=== PATIENT | female | born 1955 | race Caucasian/White ===

== ENCOUNTER 2017-01-21 08:09 | Inpatient (IN) ==
[2017-01-21] MEDS: LR 1,000 ML IV SCH ×5 (08:25→22:23)
[2017-01-21 08:31] VITALS: BMI 31.1
--- NOTE | 2017-01-21 09:39 | Anesthesia Preoperative Report ---
Anesthesia Preoperative Record - Date and Time Date: 01/21/17 Preoperative Diagnosis: Open right hemicolectomy cecal cancer Proposed Procedure: open right hemicolectomy NPO Since Date: 01/20/17 NPO Since Time: 23:00 Allergies/Adverse Reactions: Allergies Allergy/AdvReac Type Severity Reaction Status Date / Time erythromycin base AdvReac Unknown VOMITING Verified 01/21/17 08:23 - Vital Signs Vital Signs: Temperature 98.5 F 01/21/17 08:31 Pulse Rate 73 01/21/17 08:31 Respiratory Rate 15 01/21/17 08:31 Blood Pressure 154/72 H 01/21/17 08:31 Pulse Oximetry 98 01/21/17 08:31 Height and Weight: Height 1.73 m Weight 93.1 kg Body Mass Index 31.1 - Medications Inpatient Medications: Current Medications Alvimopan (Entereg) 12 mg PO O ONE Stop: 01/21/17 14:38 Last Admin: 01/21/17 08:50 Dose: 12 mg Ertapenem 1 g/ Sodium Chloride 100 mls @ 200 mls/hr IV PREOP ONE Stop: 01/21/17 15:11 Lactated Ringer's (Lactated Ringers) 1,000 mls @ 150 mls/hr IV .Q6H40M CHAVA Last Admin: 01/21/17 08:25 Dose: 150 mls/hr Lidocaine HCl (Xylocaine-Mpf 1% Vial) 1 mg ID O ONE Stop: 01/21/17 14:38 Last Admin: 01/21/17 08:55 Dose: Not Given Home Medications: Home Medications Medication Instructions Recorded Confirmed Type Acetaminophen [Tylenol Arthritis] 650 mg PO Q6H PRN #0 10/06/15 01/21/17 History Fluticasone Nasal [place] [Flonase] 1 spray EA NOSTRIL DAILY PRN #0 10/06/1501/21 History albuterol sulfate HFA 90 2 puff INH Q6H PRN g 08/20/16 01/21/17 History mcg/actuation aerosol inhaler lutein 20 mg capsule 20 mg PO DAILY cap 01/01/17 01/21/17 History vitamin B complex capsule 1 cap PO QAM 01/01/17 01/21/17 History Cholecalciferol (Vitamin D3) 1 tab PO DAILY 01/02/17 01/21/17 History [Vitamin D3] Duloxetine HCl [Cymbalta] 2 tab PO HS 01/02/17 01/21/17 History Trazodone [Desyrel] 150 mg PO HS 01/02/17 01/21/17 History - Medical History Cardiovascular: Reports: Other (ablaltion 10 yrs ago, ) Neuro/Musculoskeletal: Reports: Other (TIA, 4 yrs ago during tumor removal, vision loss left eye, ) - Surgical History HEENT Surgeries: Reports: Ear Surgery (mole removal), Tonsillectomy Cardiac Surgeries/Treatments: Reports: Other (CARDIAC ABLATION) GI Surgery/Treatments: Reports: Appendectomy, Hernia Repair (HIATAL-2000), Colonoscopy (2010,2016), EGD (2000,2016) Musculoskeletal Surgery/Tx: Reports: Other (LEFT ANKLE and foot X2-fracture/no surgery) Reproductive Surgery/Treatment: Reports: Hysterectomy Anesthesia Reactions: None Hx Family Anesthesia Reaction: No - Social History Smoking Status: Never smoker - Pertinent Findings Laboratory: CBC and BMP 01/21/17 08:35 EKG: Sinus Rhythm - Physical Exam Respiratory Exam: Present: lungs clear, bilateral breath sounds equal Cardiovascular Exam: Present: regular rate and rhythm, no murmur - Airway Assessment Mallampati Score: III TMD: 2 Fingerbreadths Neck Extension: fair - ASA ASA Score: 3 - Plan Anesthesia: General Inhalation Gases - Discussion Discussion: Discussed risks/options/alternatives of anesthesia and questions answered. Patient consents. Nursing pain assessment noted. Attestation Statement: Prior to the delivery of any anesthetic medication, I examined the patient, developed the plan, obtained the patient's consent and discussed the risk and benefits of the procedure with the patient/guardian. - Additional Information Comments: anemic, surgeon and pt aware. type and screen done, possible art line, iv, and ICU if needed
[2017-01-21] MEDS ORDERED: SCOPOLAMINE 1.5 MG PATCH TD ONE (09:46)
[2017-01-21] MEDS ORDERED: FentaNYL 100 MCG/2 ML INJECTION ONE ×4 (09:59→13:50)
[2017-01-21] MEDS ORDERED: PROPOFOL 20 ML ONE ×2 (09:59→12:12)
[2017-01-21] MEDS ORDERED: ROCURONIUM 50 MG/5 ML INJECTION IVP ONE (09:59)
[2017-01-21] MEDS ORDERED: MIDAZOLAM 2mg/2ml INJECTION ONE (09:59)
[2017-01-21] MEDS ORDERED: ANESTHESIA MIXTURE 50 ML IV ONE (10:00)
[2017-01-21] MEDS ORDERED: LIDOCAINE 2% JELLY Tube 30ml ONE (10:01)
[2017-01-21] MEDS ORDERED: ONDANSETRON 4 MG/2 ML INJECTION ONE ×2 (10:21→13:18)
[2017-01-21] MEDS ORDERED: METOCLOPRAMIDE 10mg/2ml INJECTION ONE (10:21)
[2017-01-21] MEDS ORDERED: DEXAMETHASONE 4 MG/ML INJECTION ONE (10:21)
[2017-01-21] MEDS ORDERED: HYDROMORPHONE 2 MG/ML INJECTION ONE (11:12)
[2017-01-21] MEDS ORDERED: LIDO 1% 30ml/BUPIV 0.25%-EPI 1:200T 30ml MIXTURE (60ml total) ID ONE (11:13)
--- NOTE | 2017-01-21 14:19 | General Surgery Procedure Note ---
Date of Procedure: 01/21/17 Surgeon: Krystle Oyster Planter: Zeynep Anesthesia: General Inhalation Gases ASA Score: 3 Postoperative Diagnosis: Cecal cancer, extensive intraabdominal adhesions Procedure: Ex lap, right hemicolectomy, incidental appendectomy
[2017-01-21] MEDS ORDERED: LIDOCAINE 1% (10mg/ml) 2mL INJ PF SDV ID ONE (14:37)
[2017-01-21] MEDS ORDERED: ALVIMOPAN 12 MG CAPSULE PO ONE (14:37)
[2017-01-21] MEDS ORDERED: ERTAPENEM 1 G in NS 100 ML IV ONE (14:42)
--- NOTE | 2017-01-21 14:45 | Anesthesia Postoperative Note ---
- Date and Time Date: 01/21/17 Time: 14:30 - Status Patient Participated in Evaluation: Patient Participated in Person Vital Signs: Temperature 98.8 F 01/21/17 14:07 Pulse Rate 89 01/21/17 14:40 Respiratory Rate 14 01/21/17 14:40 Blood Pressure 151/72 H 01/21/17 14:40 Pulse Oximetry 93 01/21/17 14:40 Respiratory Function: Airway Patent Cardiovascular Function: Regular Pulse EKG: Sinus Rhythm Mental Status: Alert and Oriented Pain Intensity: 0 Hydration: IV Infusing Complications During Recover: None Apparent - Follow-Up Instructions Instructions: Per Surgeon
[2017-01-21] MEDS ORDERED: METOCLOPRAMIDE 10mg/2ml INJECTION IVP PRN (15:21)
[2017-01-21] MEDS ORDERED: HYDROMORPHONE PCA 30mg/30ml VIAL IV PRN (15:21)
[2017-01-21] MEDS ORDERED: ONDANSETRON 4 MG/2 ML INJECTION IVP PRN (15:21)
[2017-01-21] MEDS ORDERED: ACETAMINOPHEN 500 MG TABLET PO PRN (15:21)
--- NOTE | 2017-01-21 17:37 | Operative Note ---
DATE OF OPERATION 01/21/2017 SURGEON Noah Dalton MD BACTERIOLOGIST SOIL Miguel Adhikari MD PREOPERATIVE DIAGNOSES 1. Adenocarcinoma of the cecum. 2. Multiple incisional ventral hernias. POSTOPERATIVE DIAGNOSES 1. Adenocarcinoma of the cecum. 2. Extensive intraabdominal adhesions. PROCEDURE 1. Exploratory laparotomy. 2. Right hemicolectomy with [id number] functional end-to-end anastomosis of the terminal ileum to the transverse colon. 3. Incidental cholecystectomy. 4. Adhesiolysis x 60 minutes. ANESTHESIA General. ASA Class 3 INDICATIONS The patient is a 61-year-old female who had been found to have iron-deficiency anemia. With endoscopy she was noted to have a large cecal mass. Biopsies of the mass had shown adenocarcinoma of the cecum. Metastatic workup was negative and so right hemicolectomy was recommended to her. FINDINGS There was no gross evidence of peritoneal spread of her cancer. There were extensive intraabdominal adhesions, mostly of the omentum to the anterior abdominal wall. There were multiple incisional ventral hernias along her upper midline incision down to the level of the umbilicus. These were all incorporated into her fascial closure. DESCRIPTION OF PROCEDURE After informed consent was obtained the patient was taken to the operating room and placed in the supine position. General anesthesia was administered by the anesthesia team. The patient's abdomen was then prepped and draped in usual sterile fashion. Local was injected along the patient's prior upper midline incision down to below the umbilicus. The patient's prior laparotomy scar was excised with a 10-blade scalpel. Electrocautery was used to dissect down through the skin and subcutaneous tissue. The fascia was divided with cautery and the peritoneal space was entered. Adhesions to the undersurface of the fascia were taken down bluntly to allow opening of the fascia up to the xiphoid and down below the umbilicus. The fascial incision was somewhat circuitous so that it could pass through the midportion of the patient's multiple incisional ventral hernias. The umbilical stalk was also divided with cautery to allow exposure of the fascial edge. The fascia was then elevated anteriorly and a combination of sharp dissection, blunt dissection, and electrocautery were used to divide adhesions in the right abdomen. The falciform ligament was clamped and divided. The edges were ligated with Vicryl ties. There were extensive omental adhesions to the anterior abdominal wall. These were tediously taken down. Dissection was continued down to the omental adhesions in the lower midline. Further omental adhesions to the left anterior abdominal wall were taken down using cautery. Adhesions of the liver to the anterior abdominal wall were then taken down using cautery. When adequate space had been cleared an Bradly O Wound Protector was placed. A Bookwalter retractor was also utilized for retraction. Hemostasis of the omentum was achieved with electrocautery and suture ligation with Vicryl ties in areas of bleeding. The right white line of [place] was divided with electrocautery. The terminal ileum was also mobilized after division of the peritoneum along the right pelvic sidewall. The plane of dissection was continued around until the mesentery of the ascending colon was able to be mobilized up to the duodenum. The duodenum was swept posteriorly and dissection was continued around the hepatic flexure using cautery. The transverse colon mesentery was from the overlying omentum. The omentum was then taken off of the proximal transverse colon using cautery. The middle colic artery was identified. A branch extending to the right was preserved and a window was made in the mesentery. The transverse colon was divided more proximal to the preserved branch with a TLC75 stapler. Attention was turned to the terminal ileum and a site of division was selected. A window was made in the mesentery and the bowel was divided with a reload of the TLC75 stapler. The mesentery was then divided between clamps down to the base of the ileocolic pedicle. The pedicle was doubly ligated with 0-Vicryl ties. The free edges of the mesentery were controlled with clamps and ligated with 0-Vicryl ties. Once the mesentery was fully divided the abdomen was irrigated and suctioned free of fluid. Additional attention was paid to the raw surface of the omentum and additional hemostasis was achieved with electrocautery. Given the extensive adhesions within the abdomen that required significant adhesiolysis it was felt that future surgery for cholecystectomy would prove very difficult with the additional dissection in the area of the hepatic flexure. Incidental cholecystectomy was then performed. The gallbladder was taken off of the liver in an antegrade fashion with cautery. It was dissected down to the cystic duct. The cystic duct was doubly ligated with 0-Vicryl ties. The cystic artery was also ligated with an 0-Vicryl tie. Hemostasis within the gallbladder fossa was achieved with electrocautery. When hemostasis was assured attention was turned to performing the anastomosis of the terminal ileum to the transverse colon. Blue towels were placed around the area of the anastomosis. The corners of the antimesenteric end of the staple lines were taken off using scissors. A reload of the TLC75 stapler was used with one limb of the stapler in each bowel limb. The bowel was rotated so that the antimesenteric portions were aligned. The stapler was then fired to create the common channel. The common enterotomy was closed with a [id number] stapler after the staple lines were offset. The mesenteric defect was then closed with a running 3-0 PDS suture. The anastomosis was placed back into the right abdomen. It was covered with the greater omentum. The Bookwalter retractor and Bradly O Wound Protector were removed after I removed an outer surgical glove. All of the surgical team changed gown and gloves and new sterile instruments were utilized. The abdominal incision was also redraped. The fascial incision was then closed with a running #1 PDS suture. The knot of the suture was tacked in the subcutaneous layer with a 3-0 Vicryl stitch. The base of the umbilicus was tacked back to the fascia with a 3 -0 Vicryl stitch. The skin incision was then closed with skin. A sterile bandage was applied as a dressing. The patient tolerated the procedure well. MASSIMO
[2017-01-21] MEDS: HYDROMORPHONE 2 MG/ML INJECTION IVP PRN ×2 (18:14→20:46)
[2017-01-21] MEDS ORDERED: FLUTICASONE NASAL SPRAY 50mcg EA NOSTRIL PRN (19:08)
[2017-01-21] MEDS: TRAZODONE 100 MG TABLET PO SCH (22:23)
[2017-01-21] MEDS: DULOXETINE 60 MG CAPSULE PO SCH (22:24)
[2017-01-21] MEDS: FERROUS GLUCONATE 324 MG TABLET PO SCH (22:35)
[2017-01-22] MEDS: LR 1,000 ML IV SCH ×4 (05:25→20:48)
[2017-01-22] MEDS ORDERED: INFLUENZA VAC. INJ. ADMIN CHARGE INJ ONE (07:47)
[2017-01-22] MEDS: ALVIMOPAN 12 MG CAPSULE PO SCH ×2 (08:21→20:48)
[2017-01-22] MEDS: FERROUS GLUCONATE 324 MG TABLET PO SCH ×2 (08:21→17:31)
[2017-01-22] MEDS: SERTRALINE 50 MG TABLET PO SCH (08:21)
[2017-01-22] MEDS: LUTEIN 20 MG CAPSULE PO SCH (08:21)
[2017-01-22] MEDS ORDERED: INFLUENZA VAC QIV 2017-18 (Fluarix*)(>=3yo) 0.5ml IM ONE (12:31)
--- NOTE | 2017-01-22 17:27 | Progress Note ---
DATE OF VISIT 01/22/2017 REASON FOR VISIT Postoperative followup. SUBJECTIVE Randi is doing fairly well today. She had difficulty with pain control last evening but her pain control was better this morning. She has ambulated once today and also sat in the chair for a fairly lengthy period of time. She has no significant complaints. She denies nausea. She is using her HOSPITAL INTERN. OBJECTIVE VITAL SIGNS: Afebrile with stable vitals on 2 L/nasal cannula. ABDOMEN: Her dressing is clean, dry and intact. LABORATORY DATA Hemoglobin decreased to 7.4. IMPRESSION Postop day #1 status post exploratory laparotomy with right hemicolectomy and incidental cholecystectomy - appropriate clinical progress. PLAN 1. Decrease IV fluid rate. 2. I am going to keep her Hernandez catheter since she is having still somewhat poor pain control when getting in and out of bed. 3. Continue HOSPITAL INTERN. 4. Clear liquid diet today - reevaluate tolerance tomorrow. 5. Recheck CBC tomorrow morning. MTDD
[2017-01-22] MEDS: TRAZODONE 100 MG TABLET PO SCH (20:47)
[2017-01-22] MEDS: DULOXETINE 60 MG CAPSULE PO SCH (20:48)
[2017-01-23] MEDS: HYDROMORPHONE 2 MG/ML INJECTION IVP PRN
[2017-01-23] MEDS: LR 1,000 ML IV SCH ×3 (06:00→18:16)
[2017-01-23] MEDS: HYDROCODONE/APAP 5mg/325mg TABLET PO PRN ×3 (09:55→19:52)
[2017-01-23] MEDS: LUTEIN 20 MG CAPSULE PO SCH (09:55)
[2017-01-23] MEDS: SERTRALINE 50 MG TABLET PO SCH (09:56)
[2017-01-23] MEDS: ALVIMOPAN 12 MG CAPSULE PO SCH ×3 (09:56→20:15)
[2017-01-23] MEDS: FERROUS GLUCONATE 324 MG TABLET PO SCH ×2 (09:56→18:19)
--- NOTE | 2017-01-23 14:22 | Progress Note ---
DATE OF VISIT 01/23/2017 REASON FOR VISIT Postoperative followup. SUBJECTIVE Randi she does complain of pain mostly at her upper incision. She has been tolerating the clear liquid diet well. She does complain of being tired this morning. OBJECTIVE Afebrile with stable vitals on 2 liters nasal cannula. GENERAL: The patient is awake and alert. She is in no acute distress. She was seated in a chair. ABDOMEN: Soft, appropriately tender. Her dressing was changed and was clean, dry and intact. ASSESSMENT 1. Postop day #2 status post exploratory laparotomy with right hemicolectomy, adhesiolysis, and incidental cholecystectomy - doing well. 2. Iron-deficiency anemia. Her hemoglobin is lower today at 6.6, but I think a significant component of her hemoglobin drop is dilutional from IV fluids following surgery. PLAN 1. I did discuss the patient's hemoglobin and the option of ordering 1 unit of packed red blood cells. She wanted to avoid transfusion if possible. She has still been able to ambulate in the halls and does not seem overly symptomatic from her anemia. 2. Decrease IV fluid rate to 25 ml an hour to be a carrier for her PEDIATRIC LPN. 3. Recheck CBC in the morning. 4. Discontinue Hernandez catheter. 5. Continue SCDs and hold off on chemical DVT prophylaxis due to low hemoglobin. 6. Dr. Adhikari will be covering for the weekend and next week while I am out. MASSIMO
[2017-01-23] MEDS: DULOXETINE 60 MG CAPSULE PO SCH ×2 (19:51→20:15)
[2017-01-23] MEDS: TRAZODONE 100 MG TABLET PO SCH ×2 (19:52→20:15)
[2017-01-24] MEDS: HYDROCODONE/APAP 5mg/325mg TABLET PO PRN ×3 (02:36→17:19)
[2017-01-24] MEDS: HYDROMORPHONE 2 MG/ML INJECTION IVP PRN (04:43)
[2017-01-24] MEDS: FERROUS GLUCONATE 324 MG TABLET PO SCH ×2 (08:23→17:17)
[2017-01-24] MEDS: ALVIMOPAN 12 MG CAPSULE PO SCH ×2 (08:23→21:43)
[2017-01-24] MEDS: SERTRALINE 50 MG TABLET PO SCH (08:23)
[2017-01-24] MEDS: LUTEIN 20 MG CAPSULE PO SCH (08:23)
--- NOTE | 2017-01-24 12:29 | Progress Note ---
DATE 01/24/2017 POSTOP DAY #3 HISTORY The patient did have a bowel movement yesterday and has been passing flatus. The patient did ambulate in the halls three times yesterday. She is up in a chair at this time. The patient had a full liquid diet for breakfast. She is not interested in having diet advanced yet at this time. She has better pain control today than she did yesterday. The patient has normal expected fatigue for this time after the operation. She is doing well overall. PHYSICAL EXAMINATION VITAL SIGNS: Temperature is 98.6 degrees Fahrenheit temporal. Pulse is 79. Respiratory rate is 18. Blood pressure is 132/69. Oxygen saturation is 96% on room air. ABDOMEN: The patient does have a dressing in place at the abdominal incision. LABORATORY DATA White blood cell count is 6400 with no bands. Hemoglobin is 6.8. Hematocrit is 25.1. IMPRESSION 1. Doing well following exploratory laparotomy, extensive lysis of adhesions, right hemicolectomy with primary anastomosis and incidental cholecystectomy on 01/21/2017. 2. Anemia. PLAN 1. Continue to advance diet and activity as tolerated. 2. Continue sequential compression devices for deep venous thrombosis prophylaxis. 3. Continue to monitor hemoglobin and hematocrit. MTDD
[2017-01-24] MEDS: LR 1,000 ML IV SCH (18:07)
[2017-01-24] MEDS: TRAZODONE 100 MG TABLET PO SCH (21:42)
[2017-01-24] MEDS: DULOXETINE 60 MG CAPSULE PO SCH (22:14)
[2017-01-25] MEDS: HYDROCODONE/APAP 5mg/325mg TABLET PO PRN ×4 (04:09→20:23)
[2017-01-25] MEDS: SERTRALINE 50 MG TABLET PO SCH (09:45)
[2017-01-25] MEDS: ALVIMOPAN 12 MG CAPSULE PO SCH ×2 (09:45→20:24)
[2017-01-25] MEDS: LUTEIN 20 MG CAPSULE PO SCH (09:45)
[2017-01-25] MEDS: FERROUS GLUCONATE 324 MG TABLET PO SCH ×2 (09:45→17:27)
[2017-01-25] MEDS: DULOXETINE 60 MG CAPSULE PO SCH (20:24)
[2017-01-25] MEDS: TRAZODONE 100 MG TABLET PO SCH (20:25)
[2017-01-26] MEDS: HYDROCODONE/APAP 5mg/325mg TABLET PO PRN ×4 (02:15→18:27)
[2017-01-26] MEDS: LR 1,000 ML IV SCH (03:00)
--- NOTE | 2017-01-26 07:29 | Progress Note ---
DATE 01/25/2017 POSTOP DAY #4 HISTORY The patient is tolerating a full liquid diet. She continues to pass flatus. She has been up ambulating. She has [place] available for oral analgesia but is still using some intravenous analgesics also. She continues to have fatigue which would be normal for this time after the operation. She is doing well overall. PHYSICAL EXAMINATION VITAL SIGNS: Temperature is 99.7 degrees Fahrenheit oral. Pulse is 87. Respiratory rate is 20. Blood pressure is 136/67. Oxygen saturation is 92% on room air. ABDOMEN: The patient does have a dressing in place over the abdominal incision. The abdomen does not appear to be distended. LABORATORY DATA White blood cell count is 5,900 today with 1 band. Hemoglobin is 7.5. Hematocrit is 27.4. Electrolytes are normal. Serum creatinine is 0.7. IMPRESSION 1. Doing well following exploratory laparotomy, extensive lysis of adhesions, right hemicolectomy with primary anastomosis and incidental cholecystectomy on 01/21/2017. 2. Anemia which is improved today. PLAN 1. Advance diet to regular diet. 2. Continue to advance activity as tolerated. 3. Continue sequential compression devices for deep venous thrombosis prophylaxis. 4. Continue to monitor hemoglobin and hematocrit. 5. Work on transitioning the patient from intravenous analgesics to oral analgesics in preparation for discharge of the patient from the hospital. MASSIMO
[2017-01-26] MEDS: FERROUS GLUCONATE 324 MG TABLET PO SCH ×2 (10:14→18:26)
[2017-01-26] MEDS: LUTEIN 20 MG CAPSULE PO SCH (10:14)
[2017-01-26] MEDS: ALVIMOPAN 12 MG CAPSULE PO SCH ×2 (10:14→20:53)
[2017-01-26] MEDS: SERTRALINE 50 MG TABLET PO SCH (10:14)
[2017-01-26] MEDS ORDERED: IBUPROFEN 200 MG TABLET PO PRN (10:33)
--- NOTE | 2017-01-26 13:24 | Progress Note ---
DATE 01/26/2017 POSTOP DAY #5 HISTORY The patient is tolerating a regular diet. The patient ambulated three times yesterday. She is up in a chair today. The patient did have a bowel movement today. She is passing flatus. She is having no nausea or vomiting. The patient is working on transitioning from intravenous analgesia to oral analgesia for pain control. PHYSICAL EXAMINATION VITAL SIGNS: Temperature is 98.7 degrees Fahrenheit oral. Pulse is 83. Respiratory rate is 16. Blood pressure is 134/73. Oxygen saturation is 94% on room air. ABDOMEN: The patient does have a dressing in place at the abdominal incision. LABORATORY DATA White blood cell count is 6700 with 1 band today. Hemoglobin is 7.2. Hematocrit is 25.9. Electrolytes are normal. Serum creatinine is 0.7. IMPRESSION 1. Doing well following exploratory laparotomy, extensive lysis of adhesions, right hemicolectomy with primary anastomosis and incidental cholecystectomy on 01/21/2017. 2. Anemia which is stable. PLAN 1. Continue to advance diet and activity as tolerated. 2. Continue sequential compression devices for deep venous thrombosis prophylaxis. 3. Continue to work to transition the patient from intravenous analgesics to oral analgesics for pain control at the incision. The patient is currently taking [place] 5 at a dosage of 1-2 tablets p.o. every 4 hours p.r.n. pain. We will add some ibuprofen to help with pain control. We will discontinue the intravenous analgesics today. 4. Discontinue telemetry. 5. Discontinue intravenous fluids which were running at a TKO rate and change to IV lock status. [facility]
[2017-01-26] MEDS: SALINE FLUSH 10ml SYRINGE IV PRN ×2 (14:47→20:55)
[2017-01-26] MEDS: TRAZODONE 100 MG TABLET PO SCH (20:53)
[2017-01-26] MEDS: DULOXETINE 60 MG CAPSULE PO SCH (20:53)
[2017-01-27] MEDS: HYDROCODONE/APAP 5mg/325mg TABLET PO PRN ×4 (04:29→16:02)
[2017-01-27] MEDS: SALINE FLUSH 10ml SYRINGE IV PRN (05:37)
[2017-01-27] MEDS: SERTRALINE 50 MG TABLET PO SCH (08:39)
[2017-01-27] MEDS: ALVIMOPAN 12 MG CAPSULE PO SCH (08:39)
[2017-01-27] MEDS: FERROUS GLUCONATE 324 MG TABLET PO SCH ×2 (08:39→18:52)
[2017-01-27] MEDS: LUTEIN 20 MG CAPSULE PO SCH (08:39)
[2017-01-27 17:30] VITALS: BP 143/73; PULSE 91; RESP 12; TEMP 98; O2SAT 96
--- NOTE | 2017-01-27 18:52 | Progress Note ---
DATE OF VISIT 01/27/2017 REASON FOR VISIT Postoperative followup. SUBJECTIVE Randi is doing well. She had a few bowel movements this morning. Her pain control was somewhat behind overnight but she has it back under control currently. She has not used any IV pain medication since discontinuation yesterday. She is tolerating a regular diet. She has been ambulating. OBJECTIVE VITAL SIGNS: Afebrile with stable vitals on room air. GENERAL: The patient is awake, alert, in no acute distress. She is lying in bed. ABDOMEN: Soft, appropriately tender. Her incision is clean, dry and intact. There is no evidence of infection. PATHOLOGY The patient's pathology report was reviewed with her. IMPRESSION 1. Postop day #6 status post exploratory laparotomy with right hemicolectomy, adhesiolysis, and incidental cholecystectomy - doing well. 2. Iron deficiency anemia - stable without transfusion. PLAN 1. I think Randi is doing well enough to go home today. 2. See discharge packet for discharge instructions. MASSIMO
--- NOTE | 2017-01-27 20:48 | Discharge Summary ---
DATE OF ADMISSION: 01/21/2017 DATE OF DISCHARGE: 01/27/2017 ATTENDING PHYSICIAN Noah Dalton MD DISCHARGE DIAGNOSES 1. Invasive moderately differentiated colonic adenocarcinoma (grade 2) of the cecum (pT3 N0) (0 of 22 nodes) - MMR sufficient. 2. Iron-deficiency anemia - present on admission, related to cecal cancer. 2. Obesity with BMI of 30.6. 3. Fibromyalgia. 4. Anxiety, depression, posttraumatic stress disorder. PROCEDURES The patient underwent exploratory laparotomy with right hemicolectomy (side-to- side functional end-to-end anastomosis of the terminal ileum to the transverse colon), incidental cholecystectomy, and adhesiolysis x 60 minutes on 01/21/2017 by myself with the assistance of Miguel Adhikari MD. CONSULTATIONS None. LABORATORY DATA Hemoglobin was 7.4 on postop day #1 and decreased to 6.6 on postop day #2. Hemoglobin was 8.8 preoperatively and stabilized in the low 7 range prior to discharge. See the patient's pathology report and discharge diagnoses above for details of her pathology specimen. BRIEF HOSPITAL COURSE The patient was admitted and underwent procedure as above. Postoperatively she was transferred to the floor. She was given a Dilaudid CONTACT CENTRE SUPERVISOR to help with pain control. She did have some difficulty with pain control in the early postoperative time frame. On postop day #1 her fluid was decreased and her Hernandez catheter was continued because of poor pain control. She was started on a clear liquid diet. Hemoglobin was followed serially - see results above. On postop day #2 when her hemoglobin was low a discussion was had about transfusion and she wanted to avoid a transfusion unless needed. Her IV fluids were decreased even more since she was tolerating a clear liquid diet well. She was advanced to a full liquid diet. Her Hernandez catheter was discontinued. She gradually improved with pain control and was started on oral [place]. She had ibuprofen added as well before discharge. Once she was tolerating a regular diet and pain was controlled without IV narcotics she was ready for dismissal on postop day #6. She did have multiple bowel movements in the hospital stay. She had been on Entereg to help avoid a postoperative ileus. DISPOSITION Home by private vehicle. CONDITION ON DISCHARGE Good. DISCHARGE INSTRUCTIONS DIET Regular diet as tolerated. ACTIVITY No heavy lifting, pushing, pulling, or straining for one month following surgery. MEDICATIONS See discharge medical reconciliation. WOUND CARE The patient may leave her incision open to air. FOLLOWUP The patient is to follow up with me in about two weeks after surgery to have her placido removed. MASSIMO
== END 2017-01-27 18:30 | disposition home or self-care (01) | DRG 331 ==
LOC: SRG 08:09
PROVIDERS: ADMIT Surgery; ATTEND Surgery